=== PATIENT | male | born 1995 | race African-American/Black ===

== ENCOUNTER → 2020-04-30 | Outpatient (CLI) | payer OTHER ==
--- NOTE | 2020-04-30 10:10 | RADIOLOGY REPORT (SQ) ---
EXAM DESCRIPTION: DUPLEX ART/CHIDI FLOW COMPLETE IMAGES COMPLETED DATE/TIME: 04/30/2020 9:00 am REASON FOR STUDY: (I70.1)ATHEROSCLEROSIS OF RENAL ARTERY I70.1 ATHEROSCLEROSIS OF RENAL ARTERY COMPARISON: None. TECHNIQUE: Realtime and static grayscale images acquired. Selected color Doppler, velocities and spe ctral images recorded. LIMITATIONS: None. FINDINGS: RIGHT KIDNEY: RENAL ARTERY VELOCITIES: 54.9-81.4 cm/sec. Segmental Artery Velocity: 33.8 cm/sec. RENAL VEIN: Patent. VELOCITY RATIO: 0.57. Normal spectral waveforms. KIDNEY: The right kidney measures 11.2 cm in length. The echogenicity of the renal parenchyma is no rmal. There is no hydronephrosis. LEFT KIDNEY: RENAL ARTERY VELOCITIES: 33.6-58.2 cm/sec. Segmental Artery Velocity: 36.9 cm/sec. RENAL VEIN: Patent. VELOCITY RATIO: 0.41. Normal spectral waveforms. KIDNEY: The left kidney measures 10.2 cm in length. The echogenicity of the renal parenchyma is nor mal. There is no hydronephrosis. AORTA: 141.8 cm/sec. BLADDER: Normal. OTHER: No other findings. IMPRESSION: NO DOPPLER EVIDENCE OF HEMODYNAMICALLY SIGNIFICANT RENAL ARTERY STENOSIS. COMMENT: NORMAL RENAL ARTERY/AORTA VELOCITY RATIO IS LESS THAN OR EQUAL TO 3.5. TECHNICAL DOCUMENTATION: JOB ID: [id number] [employer]- All Rights Reserved Reading location - IP/workstation name: [email or web address]
== END ==
LOC: RAD 08:24 → EDBD 08:30
PROVIDERS: ATTEND Student in an Organized Health Care Education/Training Program
DX: I70.1 Atherosclerosis of renal artery (principal)
CPT/HCPCS: 93975